=== PATIENT | female | born 1950 | race Caucasian/White ===

== ENCOUNTER 2023-07-06 06:07 | Day surgery (SDC) | payer MEDICARE, OTHER, SELFPAY ==
[2023-07-06] VITALS (7 sets, daily range): BP systolic 140–193; BP diastolic 64–86; BMI 26.1
[2023-07-06] MEDS: LOPRESSOR 50 MG PO (08:42)
--- NOTE | 2023-07-06 09:45 | PTCARENOTE ---
Patient checked on several times and offered warm blankets, bathroom trip ect. Patient stated that she did not need anything. Will monitor patient.
== END 2023-07-06 12:21 | disposition home or self-care (01) ==
LOC: GI 06:07
PROVIDERS: ATTENDING PHYSICIAN Internal Medicine Gastroenterology
DX: Z12.11 Encounter for screening for malignant neoplasm of colon (principal); Z86.010 Personal history of colon polyps; K57.30 Diverticulosis of large intestine without perforation or abscess without bleeding; K64.8 Other hemorrhoids; K62.1 Rectal polyp; Z87.11 Personal history of peptic ulcer disease; K22.2 Esophageal obstruction; K44.9 Diaphragmatic hernia without obstruction or gangrene; D17.5 Benign lipomatous neoplasm of intra-abdominal organs; K22.89 Other specified disease of esophagus; K31.89 Other diseases of stomach and duodenum; R12 Heartburn; K29.50 Unspecified chronic gastritis without bleeding
CPT/HCPCS: 45385; 43239; 88305; 88342

== ENCOUNTER → 2024-02-22 11:42 | Outpatient (REF) | payer MEDICARE, OTHER, SELFPAY | LOC: HWWDC 11:42 | PROVIDERS: ATTENDING PHYSICIAN Family Medicine | DX: Z12.31 Encounter for screening mammogram for malignant neoplasm of breast (principal) | CPT/HCPCS: 77063; 77067 ==